=== PATIENT | female | born 1950 | race Caucasian/White ===

== ENCOUNTER 2018-08-22 15:45 | Emergency (ER) | payer MEDICAID, OTHER ==
[~2018-08-22] VITALS: Ht 162.6 cm; Wt 61.4 kg
[2018-08-22 16:01] VITALS: BP 159/78
[2018-08-22] MEDS ORDERED: BENZ100C68 PO (16:08)
[2018-08-22] MEDS ORDERED: ACET500C4 PO (16:08)
[2018-08-22] MEDS ORDERED: CIPROFLOXACIN HCL 250 MG TABLET PO ONE (16:30)
[2018-08-22] MEDS ORDERED: BACITRACIN 0.9 GM PACKET OINTMENT TP ONE (16:45)
== END 2018-08-22 17:25 | disposition home or self-care (01) ==
LOC: EMS 15:47
DX: S81.832A Puncture wound without foreign body, left lower leg, initial encounter (principal); I10 Essential (primary) hypertension; Z88.0 Allergy status to penicillin; W54.0XXA Bitten by dog, initial encounter; Y93.89 Activity, other specified; Y92.89 Other specified places as the place of occurrence of the external cause; Y99.8 Other external cause status

== ENCOUNTER 2018-10-28 19:42 | Emergency (ER) | payer MEDICAID ==
[~2018-10-28] VITALS: Ht 152.4 cm; Wt 52.0 kg
[~2018-10-28 19:42] MED LIST: ACET500C4 PO; BENZ100C68 PO
[2018-10-28] MEDS ORDERED: HYPERTENSION PO (19:54)
[2018-10-28 20:42] VITALS: BP 180/84
[2018-10-28] MEDS ORDERED: LISINOPRIL 10 MG TABLET PO ONE (20:45)
[2018-10-28] MEDS ORDERED: PERMETHRIN 1% 60 ML LOTION TP ONE (21:00)
== END 2018-10-28 22:11 | disposition home or self-care (01) ==
LOC: EMS 19:42
DX: B85.0 Pediculosis due to Pediculus humanus capitis (principal); I10 Essential (primary) hypertension; Z88.0 Allergy status to penicillin